=== PATIENT | male | born 1975 | race Caucasian/White ===

== ENCOUNTER → 2017-10-19 14:38 | Outpatient (CLI) | payer BC, SELFPAY ==
--- NOTE | 2017-10-19 14:44 | MR_ITS ---
MR head/brain wo/w con Ordering Physician: Derrick Membreno MD Patient Age: 41 years: Male HISTORY: ITS.REASON: EPISODE OF SYNCOPE 2 weeks pain left side of head. Syncope. Blacked out. Pain on left side of head goes from occipital region of the left side of head. Intermittent headache behind left eye...with dizziness TECHNIQUE: Precontrast Multiplanar FLAIR, T1, T2 weighted images along with axial diffusion/ADC imaging performed on 1.5 T. Siemens, MRI. Postcontrast imaging [id number] mLmL ProHance T1-weighted images axial & coronal plane performed COMPARISON : CT head 08/10/17 FINDINGS No mass lesions . No mass effect . No abnormal area enhancemnt. Cerebral hemispheres unremarkable. no white matter lesions Sella normal ..Ventricles & basal cisterns WNL No ischemia nor infarct Cranial cervical junction is WNL with low normal cerebellar tonsils Slight Generous sulci posterior aspect right cerebellum noted, likely developmental feature . No gliosis nor abnormal enhancment. CP angles clear. cranial nerve VII & VII unrremarkable . IACs normals .Mastoids unremarkable Orbits unremarkable but Mild chronic paranasal observations could contirbute to eye pain symptoms Ethmoid air cells with Mild to moderate mucosal thickening bilateral Right maxillary sinus. 5 mm mm mucosal thickening medial floor with only scant borderline mucosal thickening superiorly at the right maxillary sinus. Left maxillary sinus : flat retention cyst or focal mucosal technique floor. 7.5 mm height x 18 mm length.Mild mucosal thickening is seen elsewhere at the floor Marked Prominent engorgement nasal turbinates on left more so than right with deviation nasal septum right. Impression:-------- 1. MRI BRain with & without contrast - No significant findings no mass lesion , no white matter disease , no abnormal areas of enhancment 2. mild to moderate chronic paranasal sinus disease
== END ==
PROVIDERS: PCP Family Medicine; Visit Provider Family Medicine
DX: R55 Syncope and collapse (principal)
CPT/HCPCS: 70553; A9576

== ENCOUNTER → 2018-11-28 16:56 | Outpatient (CLI) | payer BC, SELFPAY ==
[2018-11-28 18:11] LABS: Basophils # 0.2 K/mm3 (0-0.2); Basophils % 1.7 % (0.1-2.0); Eosinophils # 0.3 K/mm3 (0.0-0.4); Hematocrit 50.6 % (42.0-52.0); Hemoglobin 16.3 g/dL (14.1-18.0); Lymphocytes # 1.6 K/mm3 (0.7-4.5); Lymphocytes % 18.4 % (10-50); Mean Corpuscular HGB Conc 32.3 g/dL (31.8-35.4); Mean Corpuscular Volume 95.8 fl (80-94); Mean Platelet Volume 7.3 fl (7.4-10.4); Monocytes # 0.4 K/mm3 (0.1-1.0); Monocytes % 4.4 % (1.7-9.3); Neutrophils # 6.5 K/mm3 (1.8-7.8); Neutrophils % 72.6 % (37.0-80.0); Platelet Count 323 K/mm3 (142-424); Red Blood Count 5.27 M/mm3 (4.60-6.20); Red Cell Distribution Width 13.4 % (11.5-17.5); White Blood Count 8.9 K/mm3 (4.8-10.8)
[2018-11-28 19:06] LABS: Alanine Aminotransferase 24 U/L (12-78); Albumin Level 4.4 gm/dL (3.4-5.0); Albumin/Globulin Ratio 1.2 (1.1-1.8); Alkaline Phosphatase 75 U/L (46-116); Aspartate Amino Transferase 24 U/L (15-37); Bilirubin,Total 0.6 mg/dL (0.2-1.0); Blood Urea Nitrogen 13 mg/dL (7-18); Calcium 9.6 mg/dL (8.5-10.1); Carbon Dioxide 30 mmol/L (21.0-32.0); Chloride 99 mmol/L (98-107); Creatinine,Serum 0.95 mg/dL (0.70-1.30); Estimated Glomerular Filt Rate 87 ml/min (>60); GFR (African American) 106 ML/MIN (>60); Globulin 3.7 gm/dl (1.3-3.2); Glucose 96 mg/dL (74-106); Sodium 138 mmol/L (136-145); Thyroid Stimulating Hormone 1.58 uIU/ml (0.358-3.740); Total Protein,Serum 8.1 gm/dL (6.4-8.2)
[2018-11-30 17:26] LABS: Vitamin B12 597 pg/mL (232-1245)
[2018-11-30 17:27] LABS: Folate 16.3 ng/mL (>3.0); Vitamin D 25 Hydroxy 25.8 ng/mL (30.0-100.0)
== END ==
PROVIDERS: PCP Psychiatry & Neurology Psychosomatic Medicine; Visit Provider Psychiatry & Neurology Psychosomatic Medicine
DX: F31.89 Other bipolar disorder (principal)
CPT/HCPCS: 36415; 80053; 80165; 82607; 82652; 82746; 84443; 85025